=== PATIENT | female | born 1970 | race Caucasian/White ===

== ENCOUNTER → 2017-07-11 | Outpatient (CLI) | payer BC | END | disposition home or self-care (01) | LOC: CDC 09:12 | DX: Z01.810 Encounter for preprocedural cardiovascular examination (principal) | CPT/HCPCS: 93000 ==

== ENCOUNTER 2017-07-22 07:49 | Day surgery (SDC) | payer BC ==
[~2017-07-22] VITALS: Ht 167.6 cm; Wt 114.3 kg
[~2017-07-22 07:49] MED LIST: CITRACAL + BON1 EACH PO; VITAMIN D5000 UNI1 PO; ZESTORETIC 10-1 EAC1 PO
[2017-07-22 08:23] VITALS: BP 132/82
[2017-07-22 11:20] VITALS: BP 122/79
[2017-07-22 12:00] VITALS: BP 122/68
== END 2017-07-22 11:55 | disposition home or self-care (01) ==
LOC: SDC
DX: N92.0 Excessive and frequent menstruation with regular cycle (principal); N88.2 Stricture and stenosis of cervix uteri; I10 Essential (primary) hypertension; E66.9 Obesity, unspecified; Z68.41 Body mass index [BMI] 40.0-44.9, adult
CPT/HCPCS: 88305; J0131; J0690; J1100; J1885; J2250; J2405; J2704; J2765; J3010; Q0175